=== PATIENT | female | born 1960 | race Caucasian/White ===

== ENCOUNTER 2019-10-02 09:03 | Emergency (ER) | payer BC ==
[2019-10-02] MEDS ORDERED: OCTYL 2-CYANOACRYLATE 1 EACH TP ONE (10:14)
== END 2019-10-02 11:32 | disposition home or self-care (01) ==
LOC: EDH 09:03
DX: S42.032A Displaced fracture of lateral end of left clavicle, initial encounter for closed fracture (principal); S01.81XA Laceration without foreign body of other part of head, initial encounter; W18.39XA Other fall on same level, initial encounter; Y93.01 Activity, walking, marching and hiking; Y92.89 Other specified places as the place of occurrence of the external cause; Y99.8 Other external cause status
CPT/HCPCS: 12011; 70100; 73000; 73030